=== PATIENT | male | born 1925 | race Caucasian/White ===

== ENCOUNTER → 2016-08-03 | Outpatient (CLI) | payer OTHER | LOC: CIMAGING 08:33 | PROVIDERS: ATTEND Internal Medicine | DX: M50.323 Other cervical disc degeneration at C6-C7 level (principal); M50.31 Other cervical disc degeneration, high cervical region; M50.322 Other cervical disc degeneration at C5-C6 level; M50.33 Other cervical disc degeneration, cervicothoracic region; M12.88 Other specific arthropathies, not elsewhere classified, other specified site; M99.71 Connective tissue and disc stenosis of intervertebral foramina of cervical region; M43.12 Spondylolisthesis, cervical region | CPT/HCPCS: 72050-PO ==